=== PATIENT | male | born 1990 | race Two or more races ===

== ENCOUNTER 2017-07-25 15:53 | Emergency (ER) | payer OTHER ==
[2017-07-25 16:05] VITALS: TEMP 98.2; O2SAT 97
[2017-07-25] MEDS ORDERED: IBUPROFEN 600 MG TAB PO ONE (16:47)
--- NOTE | 2017-07-25 17:04 | EDPHY ---
H & P Time Seen by Provider: 07/25/17 16:00 HPI/ROS: 27-year-old male presents complaining of right sided jaw pain after being elbowed while playing soccer. Painful to close mouth, able to open mouth less pain. No loss of consciousness, no nausea no vomiting no diarrhea. No difficulty breathing no difficulty tolerating secretions. Review of systems As per HPI General no fever no chills no weakness HEENT no eye pain no eye discharge. No eye redness, no sore throat Respiratory no cough, no shortness of breath Cardiac no chest pain, no peripheral edema GI no abdominal pain, no diarrhea, no constipation, no nausea, no vomiting no flank pain, no hematuria, no dysuria Musculoskeletal no myalgias, no joint pain Heme no easy bruising, no easy bleeding Endo no polyuria, no polydipsia Skin no rashes, no pruritus Neuro no syncope, no dizziness, no headaches Psych is no suicidal ideation, no homicidal ideation Past Medical/Surgical History: Noncontributory Social History: Social alcohol, denies drug use Smoking Status: Current every day smoker Physical Exam: 27-year-old male alert and oriented mild distress secondary to right-sided jaw pain, vital signs stable, afebrile No respiratory distress Tolerating secretions Normocephalic Extraocular muscles intact, anicteric Face Right mid mandibular tenderness to palpation, no gross deformity no swelling Worsened pain when attempting to bite Able to open mouth No tongue swelling, no posterior pharyngeal swelling No pooling of secretions Neck supple, nontender Lungs clear to auscultation bilaterally Heart regular rate and rhythm with murmur rub or gallop Abdomen nondistended soft Extremities no cyanosis clubbing or edema Constitutional: Initial Vital Signs Temperature (C) 36.8 C 07/25/17 15:59 Heart Rate 76 07/25/17 15:59 Respiratory Rate 16 07/25/17 15:59 Blood Pressure 127/76 H 07/25/17 15:59 O2 Sat (%) 97 07/25/17 15:59 O2 Delivery Mode Room Air Allergies/Adverse Reactions: No Known Allergies Allergy (Verified 07/25/17 16:05) Home Medications: Medication Instructions Recorded Hydrocodone/Acetaminophen [Alto 1 - 2 tab PO Q6H PRN #16 tab 07/25/17 5/325 (*)] Medical Decision Making - Diagnostics Imaging Results: Imaging Impressions Mandible X-Ray 07/25/17 16:11 Impression: 1. Negative radiographs of the mandible. ED Course/Re-evaluation: Patient seen and evaluated for right-sided lower jaw pain after being elbowed playing soccer. Mandible x-ray Negative Impression Right mandible contusion Plan Follow-up dentist for Panorex if possible Short-term narcotic prescription, Alto#16 Soft diet x2 weeks Ibuprofen Q 8 hours as needed Return for worsening symptoms Differential Diagnosis: Contusions amenable, mandibular dislocation, mandibular fracture - Data Points Medications Given: Discontinued Medications Ibuprofen (Motrin) 600 mg PO EDNOW ONE Stop: 07/25/17 16:48 Last Admin: 07/25/17 16:55 Dose: 600 mg Departure - Departure Disposition: Home, Routine, Self-Care Clinical Impression: Contusion of mandibular joint area Condition: Good Instructions: Jaw Fracture in Adults (ED) Additional Instructions: There is no evidence of fracture on your films, however given the amount of pain you are having, I am giving you the instructions associated with jaw fracture. Generally reccomended would be a soft diet, in other words no big chewing , for approximately 2 weeks. I would also reccomend that you see your dentist or a dentist as soon as possible to get a special film called a panorex, to look at the teeth in the area you are having pain. You make take ibuprofen for pain as often as every 8 hours as long as you have food or milk in your stomach. Referrals: NONE *PRIMARY CARE P,. [Primary Care Provider] - As per Instructions Prescriptions: Hydrocodone/Acetaminophen [Alto 5/325 (*)] 1 - 2 tab PO Q6H PRN #16 tab PRN Reason: Pain, Moderate
[2017-07-25 17:33] VITALS: BP 122/64; PULSE 67; RESP 18
[2017-07-25] MEDS ORDERED: HYDROCOD/APAP 5/325 PREPACK#6 BTL TAKEHOME ONE (17:43)
== END 2017-07-25 18:13 | disposition home or self-care (01) ==
LOC: CED 15:53
DX: S00.83XA Contusion of other part of head, initial encounter (principal); F17.200 Nicotine dependence, unspecified, uncomplicated; W51.XXXA Accidental striking against or bumped into by another person, initial encounter; Y99.8 Other external cause status; Y93.66 Activity, soccer
CPT/HCPCS: 70110-PO

== ENCOUNTER 2018-03-31 11:34 | Emergency (ER) | payer SELFPAY ==
--- NOTE | 2018-03-31 13:59 | EDPHY ---
H & P Smoking Status: Current every day smoker Time Seen by Provider: 03/31/18 12:42 HPI/ROS: CHIEF COMPLAINT: Lip laceration HISTORY OF PRESENT ILLNESS: 28-year-old male presents to the emergency department with left upper lip laceration. The patient was moving some furniture at home and accidentally cut his left upper lip. The incident happened just prior to arrival. He believes his tetanus shot is current. Denies any other trauma or injury. No dental injury. ROS: Denies dental pain, malocclusion, neck pain or other facial pain. (Denae Estevez) Past Medical/Surgical History: Negative (Denae Estevez) Social History: Single (Denae Estevez) Physical Exam: On examination the patient has a small 1.5 cm laceration to the left upper lip that crosses the vermilion border. There is no dental injury or malocclusion. No palpable facial bony tenderness. No other injuries noted. Neck is supple. ( Denae Estevez) Constitutional: Initial Vital Signs Heart Rate 63 03/31/18 11:45 Blood Pressure 131/71 H 03/31/18 11:45 O2 Sat (%) 97 03/31/18 11:45 O2 Delivery Mode Room Air Allergies/Adverse Reactions: No Known Allergies Allergy (Verified 07/25/17 16:05) Home Medications: Medication Instructions Recorded Hydrocodone/Acetaminophen [[facility] 1 - 2 tab PO Q6H PRN #16 tab 07/25/17 5/325 (*)] MDM/Departure - MDM Procedures: Laceration repair. Verbal consent was obtained from the patient. The 1.5 cm laceration on the left upper lip was anesthetized using 1% lidocaine with epinephrine. The wound was irrigated with saline, draped and explored to its base with a gloved finger. There were no deep structures involved. The wound was repaired with 6 0 Prolene, 5 sutures. The wound repair was simple. The procedure was performed by myself. (Denae Estevez) ED Course/Re-evaluation: 28-year-old male presents to the emergency department with left upper lip laceration. The wound was repaired, see procedure note. (Denae Estevez) I did not see this patient while he was in the emergency department. However his care was discussed with the PA while the patient was in the department. I agree with treatment plan and management (Rigo Gallegos) - Depart Disposition: Home, Routine, Self-Care Clinical Impression: Lip laceration Condition: Good Instructions: Care For Your Stitches (ED), Laceration (ED), Acute Wounds (ED) Additional Instructions: Wound Care Follow-Up: Removal of sutures in 5 days. Suture removal is complimentary in uncomplicated cases. Infection or abnormal findings would require reevaluation by the MD. In that case, you may be billed. Return if you notice any signs or symptoms of infection such as redness, swelling, increased pain, fever, purulent drainage.
[2018-03-31 14:10] VITALS: BP 109/75
== END 2018-03-31 14:08 | disposition home or self-care (01) ==
PROC: 0CQ1XZZ Repair Lower Lip, External Approach (ICD-10-PCS; principal; 2018-03-31)
DX: S01.511A Laceration without foreign body of lip, initial encounter (principal); W26.9XXA Contact with unspecified sharp object(s), initial encounter; Y92.009 Unspecified place in unspecified non-institutional (private) residence as the place of occurrence of the external cause; Y99.8 Other external cause status